=== PATIENT | male | born 1980 | race Caucasian/White ===

== ENCOUNTER 2019-09-18 09:53 | Inpatient (IN) | payer OTHER ==
[2019-09-18 10:27] VITALS: BMI 25.8
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
[2019-09-18] MEDS ORDERED: MAGNESIUM HYDROX 2400MG/30ML ORAL SUSPENSION 30 ML CUP PO PRN (12:06)
[2019-09-18] MEDS ORDERED: IBUPROFEN 400 MG TABLET (FP) PO PRN (12:06)
[2019-09-18] MEDS ORDERED: hydrOXYzine PAMOATE 25 MG CAPSULE (FP) PO PRN (12:06)
[2019-09-18] MEDS ORDERED: MAGNESIUM CITRATE 300 ML BOTTLE PO PRN (12:06)
[2019-09-18] MEDS ORDERED: BISMUTH SUBSALICYLATE 262 MG/15 ML BTL PO PRN (12:06)
[2019-09-18] MEDS ORDERED: MENTHOL/PHENOL 1 EACH UD MM PRN (12:06)
[2019-09-18] MEDS ORDERED: METHOCARBAMOL 500 MG TABLET PO PRN (12:06)
[2019-09-18] MEDS ORDERED: ACETAMINOPHEN 325 MG TABLET (FP) PO PRN ×2 (12:06)
[2019-09-18] MEDS ORDERED: chlordiazePOXIDE HCL 25 MG CAPSULE PO PRN (12:06)
[2019-09-18] MEDS ORDERED: MAG HYDROX/AL HYDROX/SIMETH 30 ML UNIT-DOSE CUP PO PRN (12:06)
[2019-09-18] MEDS ORDERED: ALBUTEROL SO4 8 GM HFA INHALER IH PRN (12:08)
--- NOTE | 2019-09-18 12:10 | PN ---
Teaching Attending Note Name of Resident: Felix Escobar ATTENDING PHYSICIAN STATEMENT I saw and evaluated the patient. I reviewed the resident's note and discussed the case with the resident. I agree with the resident's findings and plan as documented. SUBJECTIVE: 39 y.o. 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 Benzos: three x 2mg tablets daily xanax, 4mg klonopin 3x daily, valium as well ; last used yesterday; first started in 2009; never had withdrawal seizure Heroin: 10 bags/day last used yesterday, IV use in arms, never had abscess; never OD'd. In methadone program, since 14 years old; uses clean needles, mmtp 80 mg daily Cocaine: 4-5grams per day IV use, since 18 years old Cigarettes: 1 pack per day 15 years Marijuana: quarter ounce per week OBJECTIVE: wnwd Vital Signs - 24 hr 09/18/19 10:18 Temperature 97.8 F Pulse Rate 77 Respiratory 16 Rate Blood Pressure 137/96 ASSESSMENT AND PLAN: Alcohol dependence / Sedative dependence- Librium detox. Opioid dependence on MMTP Nicotine dependence - smoking cessation counseling cocaine dependence / Cannabis dependence .
[2019-09-18] MEDS ORDERED: chlordiazePOXIDE HCL 25 MG CAPSULE PO ONE (12:40)
[2019-09-18] MEDS: BUDESONIDE/FORMETEROL FUMARATE 160/4.5 mcg INHALER IH SCH ×2 (13:19→22:09)
[2019-09-18] MEDS: NICOTINE 21 MG/24 HOURS TOPICAL PATCH TD SCH (13:19)
[2019-09-18 14:33] LABS: HEMATOCRIT 50.8 % (35.4-49); HEMOGLOBIN 16.3 GM/dL (11.7-16.9); MCH 27.2 pg (25.7-33.7); MCHC 32.2 g/dl (32.0-35.9); MEAN CELL VOLUME 84.7 fl (80-96); MEAN PLT VOLUME 7.3 fl (7.5-11.1); PLATELET COUNT 335 K/MM3 (134-434); WHITE BLOOD COUNT 6.4 K/mm3 (4.0-10.0)
[2019-09-18 14:47] LABS: ALBUMIN 3.7 g/dl (3.4-5.0); BILIRUBIN,TOTAL 0.3 mg/dL (0.2-1); BLOOD UREA NITROGEN 14.6 mg/dL (7-18); CALCIUM 8.8 mg/dL (8.5-10.1); CREATININE 0.7 mg/dL (0.55-1.3); POTASSIUM 4.5 mmol/L (3.5-5.1); TOT PROT 6.8 g/dl (6.4-8.2)
[2019-09-18] MEDS: chlordiazePOXIDE HCL 25 MG CAPSULE PO SCH ×2 (17:29→22:09)
[2019-09-18] MEDS: THIAMINE HCL 100 MG TABLET (FP) PO SCH (22:09)
[2019-09-18] MEDS: MELATONIN 5 MG TABLETS PO PRN (22:09)
[2019-09-19] MEDS: chlordiazePOXIDE HCL 25 MG CAPSULE PO SCH ×4 (05:45→22:11)
[2019-09-19] MEDS: METHADONE HCL 40 MG DISPERSABLE TABLET PO SCH (05:45)
[2019-09-19] MEDS: NICOTINE 21 MG/24 HOURS TOPICAL PATCH TD SCH (10:37)
[2019-09-19] MEDS: PRENATAL VITAMINS W/ FOLIC ACID TABLET (FP) PO SCH (10:37)
[2019-09-19] MEDS: BUDESONIDE/FORMETEROL FUMARATE 160/4.5 mcg INHALER IH SCH ×2 (11:42→22:13)
--- NOTE | 2019-09-19 16:35 | PN ---
S CIWA - CIWA Score Nausea/Vomitin-No Nausea/No Vomiting Muscle Tremors: 3 Anxiety: 3 Agitation: 1-Slight > Activity Paroxysmal Sweats: 3 Orientation: 0-Oriented Tacttile Disturbances: 0-None Auditory Disturbances: 0-None Visual Disturbances: 0-None Headache: 2-Mild CIWA-Ar Total Score: 12 BHS COWS - Scale Resting Pulse: 0= [place] 80 or Below Sweatin= Chills/Flushing Restless Observation: 1= Difficult to Sit Still Pupil Size: 0= Normal to Room Light Bone or Joint Aches: 2= Severe Diffuse Aches Runny Nose/ Eye Tearin= None GI Upset > 30mins: 0= None Tremor Observation of Outstretched Hands: 2= Slight Tremor Visible Yawning Observation: 1= 1-2x During Session Anxiety or Irritability: 2=Irritable/Anxious Goose Flesh Skin: 3=Piloerection COWS Score: 12 BHS Progress Note (SOAP) Subjective: Body Aches, Anxious, Tremors, Sweating. Objective: PATIENT A & O X 3, OBSERVED AMBULATING ON DETOX UNIT UNASSISTED. IN NO ACUTE DISTRESS. 09/19/19 16:33 Vital Signs Temperature 98.2 F 09/19/19 09:42 Pulse Rate 63 09/19/19 09:42 Respiratory Rate 18 09/19/19 09:42 Blood Pressure 129/85 09/19/19 09:42 O2 Sat by Pulse Oximetry (%) Laboratory Tests 09/18/19 09/18/19 09/18/19 12:49 12:49 12:49 WBC 6.4 RBC 6.00 H Hgb 16.3 Hct 50.8 H MCV 84.7 MCH 27.2 MCHC 32.2 RDW 14.0 Plt Count 335 MPV 7.3 L Sodium 136 Potassium 4.5 Chloride 102 Carbon Dioxide 30 Anion Gap 4 L BUN 14.6 Creatinine 0.7 Est GFR (CKD-EPI)AfAm 135.86 Est GFR (CKD-EPI)NonAf 117.22 Random Glucose 95 Calcium 8.8 Total Bilirubin 0.3 AST 16 ALT 30 Alkaline Phosphatase 97 Total Protein 6.8 Albumin 3.7 RPR Titer Nonreactive LABS NOTED. Assessment: 09/19/19 16:34 WITHDRAWAL SYMPTOMS. Plan: CONTINUE DETOX.
[2019-09-19] MEDS: THIAMINE HCL 100 MG TABLET (FP) PO SCH (22:11)
[2019-09-19] MEDS: MELATONIN 5 MG TABLETS PO PRN (22:11)
[2019-09-20] MEDS: chlordiazePOXIDE HCL 25 MG CAPSULE PO SCH ×4 (05:30→22:09)
[2019-09-20] MEDS: METHADONE HCL 40 MG DISPERSABLE TABLET PO SCH (05:30)
--- NOTE | 2019-09-20 10:19 | PN ---
[facility] CIWA - CIWA Score Nausea/Vomitin-Mild Nausea/No Vomiting Muscle Tremors: 3 Anxiety: 2 Agitation: 3 Paroxysmal Sweats: 1-Minimal Palms Moist Orientation: 0-Oriented Tacttile Disturbances: 0-None Auditory Disturbances: 0-None Visual Disturbances: 0-None Headache: 0-None Present CIWA-Ar Total Score: 10 S Progress Note (SOAP) Subjective: 39 years old male admitted on 09/18/19 for alcohol withdrawal sx management treated with librium detox regimen tolerate well at this time ate breakfast received methadone 80 mg po today feeling better resting on bed comfortably Objective: 09/20/19 10:22 Vital Signs Temperature 98.2 F 09/20/19 09:09 Pulse Rate 65 09/20/19 09:09 Respiratory Rate 18 09/20/19 09:09 Blood Pressure 125/84 09/20/19 09:09 O2 Sat by Pulse Oximetry (%) Laboratory Last Values WBC 6.4 K/mm3 (4.0-10.0) 09/18/19 12:49 RBC 6.00 M/mm3 (4.00-5.60) H 09/18/19 12:49 Hgb 16.3 GM/dL (11.7-16.9) 09/18/19 12:49 Hct 50.8 % (35.4-49) H 09/18/19 12:49 MCV 84.7 fl (80-96) 09/18/19 12:49 MCH 27.2 pg (25.7-33.7) 09/18/19 12:49 MCHC 32.2 g/dl (32.0-35.9) 09/18/19 12:49 RDW 14.0 % (11.9-15.9) 09/18/19 12:49 Plt Count 335 K/MM3 (134-434) 09/18/19 12:49 MPV 7.3 fl (7.5-11.1) L 09/18/19 12:49 Sodium 136 mmol/L (136-145) 09/18/19 12:49 Potassium 4.5 mmol/L (3.5-5.1) 09/18/19 12:49 Chloride 102 mmol/L (98-107) 09/18/19 12:49 Carbon Dioxide 30 mmol/L (21-32) 09/18/19 12:49 Anion Gap 4 MMOL/L (8-16) L 09/18/19 12:49 BUN 14.6 mg/dL (7-18) 09/18/19 12:49 Creatinine 0.7 mg/dL (0.55-1.3) 09/18/19 12:49 Est GFR (CKD-EPI)AfAm 135.86 09/18/19 12:49 Est GFR (CKD-EPI)NonAf 117.22 09/18/19 12:49 Random Glucose 95 mg/dL (74-106) 09/18/19 12:49 Calcium 8.8 mg/dL (8.5-10.1) 09/18/19 12:49 Total Bilirubin 0.3 mg/dL (0.2-1) 09/18/19 12:49 AST 16 U/L (15-37) 09/18/19 12:49 ALT 30 U/L (13-61) 09/18/19 12:49 Alkaline Phosphatase 97 U/L (45-117) 09/18/19 12:49 Total Protein 6.8 g/dl (6.4-8.2) 09/18/19 12:49 Albumin 3.7 g/dl (3.4-5.0) 09/18/19 12:49 RPR Titer Nonreactive (NONREACTIVE) 09/18/19 12:49 lab noted Assessment: 09/20/19 10:23 alcohol withdrawal sx methadone maintenance program Plan: continue librium detox regimen
[2019-09-20] MEDS: PRENATAL VITAMINS W/ FOLIC ACID TABLET (FP) PO SCH (11:00)
[2019-09-20] MEDS: NICOTINE 21 MG/24 HOURS TOPICAL PATCH TD SCH (11:00)
[2019-09-20] MEDS: BUDESONIDE/FORMETEROL FUMARATE 160/4.5 mcg INHALER IH SCH ×2 (11:00→22:09)
[2019-09-20] MEDS: THIAMINE HCL 100 MG TABLET (FP) PO SCH (22:09)
[2019-09-20] MEDS: MELATONIN 5 MG TABLETS PO PRN (22:09)
[2019-09-21] MEDS ORDERED: chlordiazePOXIDE HCL 10 MG CAPSULE PO PRN
[2019-09-21] MEDS ORDERED: chlordiazePOXIDE HCL 10 MG CAPSULE PO SCH (05:00)
[2019-09-21] MEDS: METHADONE HCL 40 MG DISPERSABLE TABLET PO SCH (06:01)
[2019-09-21 09:21] VITALS: BP 123/68; PULSE 87; TEMP 97.2
--- NOTE | 2019-09-21 14:54 | DS ---
[facility] Detox Discharge Summary Admission Date: 09/18/19 Discharge Date: 09/21/19 - History Present History: Alcohol Dependence Additional Comments: 39 years old male admitted on 09/18/19 for alcohol withdrawal sx management treated with librium detox regimen patient tolerated well estimate discharge date 09/23/10 patient report feeling better today wants to return home where support system of parents girlfriend and siblings patient prefers to leave the detox to go to for sobriety patient is alert oriented x 3 respiratory clear lung bilaterally on auscultation abdomen soft no rebound tenderness extremities full range of motion - Physical Exam Results Vital Signs: Vital Signs Temperature 97.2 F L 09/21/19 09:21 Pulse Rate 87 09/21/19 09:21 Respiratory Rate 18 09/21/19 09:21 Blood Pressure 123/68 09/21/19 09:21 O2 Sat by Pulse Oximetry (%) Pertinent Admission Physical Exam Findings: alcohol withdrawal sx Laboratory Last Values WBC 6.4 K/mm3 (4.0-10.0) 09/18/19 12:49 RBC 6.00 M/mm3 (4.00-5.60) H 09/18/19 12:49 Hgb 16.3 GM/dL (11.7-16.9) 09/18/19 12:49 Hct 50.8 % (35.4-49) H 09/18/19 12:49 MCV 84.7 fl (80-96) 09/18/19 12:49 MCH 27.2 pg (25.7-33.7) 09/18/19 12:49 MCHC 32.2 g/dl (32.0-35.9) 09/18/19 12:49 RDW 14.0 % (11.9-15.9) 09/18/19 12:49 Plt Count 335 K/MM3 (134-434) 09/18/19 12:49 MPV 7.3 fl (7.5-11.1) L 09/18/19 12:49 Sodium 136 mmol/L (136-145) 09/18/19 12:49 Potassium 4.5 mmol/L (3.5-5.1) 09/18/19 12:49 Chloride 102 mmol/L (98-107) 09/18/19 12:49 Carbon Dioxide 30 mmol/L (21-32) 09/18/19 12:49 Anion Gap 4 MMOL/L (8-16) L 09/18/19 12:49 BUN 14.6 mg/dL (7-18) 09/18/19 12:49 Creatinine 0.7 mg/dL (0.55-1.3) 09/18/19 12:49 Est GFR (CKD-EPI)AfAm 135.86 09/18/19 12:49 Est GFR (CKD-EPI)NonAf 117.22 09/18/19 12:49 Random Glucose 95 mg/dL (74-106) 09/18/19 12:49 Calcium 8.8 mg/dL (8.5-10.1) 09/18/19 12:49 Total Bilirubin 0.3 mg/dL (0.2-1) 09/18/19 12:49 AST 16 U/L (15-37) 09/18/19 12:49 ALT 30 U/L (13-61) 09/18/19 12:49 Alkaline Phosphatase 97 U/L (45-117) 09/18/19 12:49 Total Protein 6.8 g/dl (6.4-8.2) 09/18/19 12:49 Albumin 3.7 g/dl (3.4-5.0) 09/18/19 12:49 RPR Titer Nonreactive (NONREACTIVE) 09/18/19 12:49 lab noted - Treatment Hospital Course: Detox Protocol Followed, Detoxed Safely, Responded well, Discharged Condition Good, Rehab Referral Accepted Patient has Accepted a Rehab Referral to: community support approach - Medication Discharge Medications: Ambulatory Orders Albuterol Sulfate Inhaler - [Ventolin HFA Inhaler -] 2 inh PO Q4H PRN 09/18/19 Budesonide/Formeterol Fumarate [SYMBICORT 160/4.5mcg -] 2 inh PO BID 09/18/19 Methadone [Dolophine -] 80 mg PO DAILY 09/18/19 - Diagnosis (1) Alcohol dependence Status: Acute Qualifiers: Substance use status: uncomplicated Qualified Code(s): F10.20 - Alcohol dependence, uncomplicated (2) Methadone maintenance therapy patient Status: Chronic - AMA Did Patient Leave Against Medical Advice: No CIWA Score - CIWA Score Nausea/Vomitin-No Nausea/No Vomiting Muscle Tremors: 2 Anxiety: 1-Mildly Anxious Agitation: 2 Paroxysmal Sweats: No Perspiration Orientation: 0-Oriented Tacttile Disturbances: 0-None Auditory Disturbances: 0-None Visual Disturbances: 0-None Headache: 0-None Present CIWA-Ar Total Score: 5
[2019-09-22] MEDS ORDERED: chlordiazePOXIDE HCL 10 MG CAPSULE PO SCH (05:00)
[2019-09-23] MEDS ORDERED: chlordiazePOXIDE HCL 10 MG CAPSULE PO ONE (05:00)
== END 2019-09-21 09:39 | disposition home or self-care (01) | DRG 773 ==
LOC: YASAS 09:53 → Y3N 12:33
PROVIDERS: ADMIT Allergy & Immunology; ATTEND Allergy & Immunology
PROC: HZ2ZZZZ Detoxification Services for Substance Abuse Treatment (ICD-10-PCS; principal; 2019-09-18)
DX: F10.230 Alcohol dependence with withdrawal, uncomplicated (principal); F11.20 Opioid dependence, uncomplicated; F14.20 Cocaine dependence, uncomplicated; F17.210 Nicotine dependence, cigarettes, uncomplicated; Z91.013 Allergy to seafood
CPT/HCPCS: 36415; 80053; 85027; 86593

== ENCOUNTER 2020-12-08 14:48 | Inpatient (IN) | payer OTHER ==
[2020-12-08] MEDS ORDERED: IBUPROFEN 400 MG TABLET (FP) PO PRN (15:37)
[2020-12-08] MEDS ORDERED: LOPERAMIDE HCL 2 MG CAPSULE PO PRN (15:37)
[2020-12-08] MEDS ORDERED: MAGNESIUM HYDROX 2400MG/30ML ORAL SUSPENSION 30 ML CUP PO PRN (15:37)
[2020-12-08] MEDS ORDERED: MAG HYDROX/AL HYDROX/SIMETH 30 ML UNIT-DOSE CUP PO PRN (15:37)
[2020-12-08] MEDS ORDERED: ACETAMINOPHEN 325 MG TABLET (FP) PO PRN (15:37)
[2020-12-08] MEDS ORDERED: MAGNESIUM CITRATE 300 ML BOTTLE PO PRN (15:37)
[2020-12-08] MEDS ORDERED: MENTHOL/PHENOL 1 EACH UD MM PRN (15:37)
[2020-12-08] MEDS ORDERED: P-EPHED 60MG/TRIPROLIDI 2.5MG TABLET PO PRN (15:37)
[2020-12-08] MEDS ORDERED: guaiFENesin 200 MG/10 ML 10 ML UNIT-DOSE CUPS PO PRN (15:37)
[2020-12-08] MEDS ORDERED: NICOTINE POLACRILEX 2 MG GUM BUC PRN (15:37)
[2020-12-08] MEDS ORDERED: ALBUTEROL SO4 HFA INHALER IH PRN (15:49)
[2020-12-08] MEDS: ATORVASTATIN CA 10 MG TABLET (FP) PO SCH (21:33)
[2020-12-08] MEDS: QUEtiapine FUMARATE 50 MG TABLET PO SCH (21:33)
[2020-12-08] MEDS: MELATONIN 5 MG TABLETS PO SCH (21:33)
[2020-12-08] MEDS: THIAMINE HCL 100 MG TABLET (FP) PO SCH (21:33)
[2020-12-08] MEDS: hydrOXYzine PAMOATE 25 MG CAPSULE (FP) PO PRN (21:33)
[2020-12-08] MEDS: MIRTAZAPINE 30 MG TABLET PO SCH (21:33)
[2020-12-08] MEDS: busPIRone HCL 10 MG TABLET (FP) PO SCH (21:34)
[2020-12-08] MEDS: BUDESONIDE/FORMETEROL FUMARATE 160/4.5 mcg INHALER IH SCH (21:35)
[2020-12-09] MEDS ORDERED: METHADONE HCL 10 MG TABLET PO SCH (06:00)
[2020-12-09] MEDS ORDERED: METHADONE HCL 5 MG TABLET ONE (06:39)
[2020-12-09] MEDS ORDERED: METHADONE HCL 10 MG TABLET ONE (06:39)
[2020-12-09] MEDS: METHADONE 30 MG, METHADONE 5 MG PO SCH (06:40)
[2020-12-09] MEDS: ESCITALOPRAM OXALATE 10 MG TABLET PO SCH (10:12)
[2020-12-09] MEDS: PRENATAL VITAMINS W/ FOLIC ACID TABLET (FP) PO SCH (10:12)
[2020-12-09] MEDS: NICOTINE 14 MG/24 HOURS TOPICAL PATCH TD SCH (10:12)
[2020-12-09] MEDS: busPIRone HCL 10 MG TABLET (FP) PO SCH ×2 (10:12→21:36)
[2020-12-09] MEDS: BUDESONIDE/FORMETEROL FUMARATE 160/4.5 mcg INHALER IH SCH ×2 (10:13→21:36)
[2020-12-09] MEDS: RAMIPRIL 5 MG CAPSULE PO SCH (10:13)
[2020-12-09] MEDS: QUEtiapine FUMARATE 50 MG TABLET PO SCH (21:36)
[2020-12-09] MEDS: ATORVASTATIN CA 10 MG TABLET (FP) PO SCH (21:36)
[2020-12-09] MEDS: MELATONIN 5 MG TABLETS PO SCH (21:36)
[2020-12-09] MEDS: hydrOXYzine PAMOATE 25 MG CAPSULE (FP) PO PRN (21:36)
[2020-12-09] MEDS: MIRTAZAPINE 30 MG TABLET PO SCH (21:36)
[2020-12-09] MEDS: THIAMINE HCL 100 MG TABLET (FP) PO SCH (21:36)
[2020-12-10] MEDS ORDERED: METHADONE HCL 5 MG TABLET ONE (03:28)
[2020-12-10] MEDS ORDERED: METHADONE HCL 10 MG TABLET ONE (03:28)
[2020-12-10] MEDS: METHADONE 30 MG, METHADONE 5 MG PO SCH (07:14)
[2020-12-10] MEDS: RAMIPRIL 5 MG CAPSULE PO SCH (10:14)
[2020-12-10] MEDS: ESCITALOPRAM OXALATE 10 MG TABLET PO SCH (10:14)
[2020-12-10] MEDS: PRENATAL VITAMINS W/ FOLIC ACID TABLET (FP) PO SCH (10:14)
[2020-12-10] MEDS: busPIRone HCL 10 MG TABLET (FP) PO SCH ×2 (10:14→21:45)
[2020-12-10] MEDS: NICOTINE 14 MG/24 HOURS TOPICAL PATCH TD SCH (10:15)
[2020-12-10] MEDS: BUDESONIDE/FORMETEROL FUMARATE 160/4.5 mcg INHALER IH SCH ×2 (10:15→21:45)
[2020-12-10] MEDS: THIAMINE HCL 100 MG TABLET (FP) PO SCH (21:45)
[2020-12-10] MEDS: ATORVASTATIN CA 10 MG TABLET (FP) PO SCH (21:45)
[2020-12-10] MEDS: MIRTAZAPINE 30 MG TABLET PO SCH (21:45)
[2020-12-10] MEDS: QUEtiapine FUMARATE 50 MG TABLET PO SCH (21:45)
[2020-12-10] MEDS: MELATONIN 5 MG TABLETS PO SCH (21:46)
[2020-12-11] MEDS ORDERED: METHADONE HCL 5 MG TABLET ONE (03:30)
[2020-12-11] MEDS ORDERED: METHADONE HCL 10 MG TABLET ONE (03:30)
[2020-12-11] MEDS: METHADONE 30 MG, METHADONE 5 MG PO SCH (06:17)
[2020-12-11] MEDS: busPIRone HCL 10 MG TABLET (FP) PO SCH ×2 (10:04→21:42)
[2020-12-11] MEDS: PRENATAL VITAMINS W/ FOLIC ACID TABLET (FP) PO SCH (10:04)
[2020-12-11] MEDS: ESCITALOPRAM OXALATE 10 MG TABLET PO SCH (10:04)
[2020-12-11] MEDS: BUDESONIDE/FORMETEROL FUMARATE 160/4.5 mcg INHALER IH SCH ×2 (10:04→21:42)
[2020-12-11] MEDS: NICOTINE 14 MG/24 HOURS TOPICAL PATCH TD SCH (10:05)
[2020-12-11] MEDS: RAMIPRIL 5 MG CAPSULE PO SCH (10:05)
[2020-12-11] MEDS: QUEtiapine FUMARATE 50 MG TABLET PO SCH (21:42)
[2020-12-11] MEDS: MELATONIN 5 MG TABLETS PO SCH (21:42)
[2020-12-11] MEDS: MIRTAZAPINE 30 MG TABLET PO SCH (21:42)
[2020-12-11] MEDS: THIAMINE HCL 100 MG TABLET (FP) PO SCH (21:42)
[2020-12-11] MEDS: ATORVASTATIN CA 10 MG TABLET (FP) PO SCH (21:42)
[2020-12-12] MEDS ORDERED: METHADONE HCL 5 MG TABLET ONE (05:17)
[2020-12-12] MEDS ORDERED: METHADONE HCL 10 MG TABLET ONE (05:17)
[2020-12-12] MEDS: METHADONE 30 MG, METHADONE 5 MG PO SCH (06:46)
[2020-12-12] MEDS: BUDESONIDE/FORMETEROL FUMARATE 160/4.5 mcg INHALER IH SCH ×2 (09:48→21:24)
[2020-12-12] MEDS: busPIRone HCL 10 MG TABLET (FP) PO SCH ×2 (09:48→21:24)
[2020-12-12] MEDS: RAMIPRIL 5 MG CAPSULE PO SCH (09:48)
[2020-12-12] MEDS: ESCITALOPRAM OXALATE 10 MG TABLET PO SCH (09:48)
[2020-12-12] MEDS: NICOTINE 14 MG/24 HOURS TOPICAL PATCH TD SCH (09:49)
[2020-12-12] MEDS: PRENATAL VITAMINS W/ FOLIC ACID TABLET (FP) PO SCH (09:49)
[2020-12-12] MEDS: NICOTINE 21 MG/24 HOURS TOPICAL PATCH TD SCH (11:44)
[2020-12-12] MEDS: THIAMINE HCL 100 MG TABLET (FP) PO SCH (21:24)
[2020-12-12] MEDS: MIRTAZAPINE 30 MG TABLET PO SCH (21:24)
[2020-12-12] MEDS: MELATONIN 5 MG TABLETS PO SCH (21:24)
[2020-12-12] MEDS: ATORVASTATIN CA 10 MG TABLET (FP) PO SCH (21:24)
[2020-12-12] MEDS: QUEtiapine FUMARATE 50 MG TABLET PO SCH (21:24)
[2020-12-12] MEDS: hydrOXYzine PAMOATE 25 MG CAPSULE (FP) PO PRN (21:24)
[2020-12-13] MEDS ORDERED: METHADONE HCL 5 MG TABLET ONE (03:29)
[2020-12-13] MEDS ORDERED: METHADONE HCL 10 MG TABLET ONE (03:29)
[2020-12-13 06:53] VITALS: TEMP 97.5
[2020-12-13] MEDS: METHADONE 30 MG, METHADONE 5 MG PO SCH (07:16)
[2020-12-13] MEDS: BUDESONIDE/FORMETEROL FUMARATE 160/4.5 mcg INHALER IH SCH (09:42)
[2020-12-13] MEDS: busPIRone HCL 10 MG TABLET (FP) PO SCH (09:42)
[2020-12-13] MEDS: PRENATAL VITAMINS W/ FOLIC ACID TABLET (FP) PO SCH (09:42)
[2020-12-13] MEDS: ESCITALOPRAM OXALATE 10 MG TABLET PO SCH (09:42)
[2020-12-13] MEDS: NICOTINE 21 MG/24 HOURS TOPICAL PATCH TD SCH (09:43)
[2020-12-13] MEDS: RAMIPRIL 5 MG CAPSULE PO SCH (09:43)
[2020-12-13 10:30] VITALS: BP 137/72; PULSE 103
== END 2020-12-13 09:57 | disposition home or self-care (01) | DRG 772 ==
LOC: YASAS 14:48 → Y5N 14:49
PROVIDERS: ADMIT Allergy & Immunology; ATTEND Allergy & Immunology
PROC: HZ42ZZZ Group Counseling for Substance Abuse Treatment, Cognitive-Behavioral (ICD-10-PCS; principal; 2020-12-08)
DX: F10.20 Alcohol dependence, uncomplicated (principal); F14.20 Cocaine dependence, uncomplicated; F11.20 Opioid dependence, uncomplicated; F17.210 Nicotine dependence, cigarettes, uncomplicated; F41.9 Anxiety disorder, unspecified; F32.9 Major depressive disorder, single episode, unspecified; I10 Essential (primary) hypertension; E78.5 Hyperlipidemia, unspecified; E78.00 Pure hypercholesterolemia, unspecified; J45.909 Unspecified asthma, uncomplicated; K21.9 Gastro-esophageal reflux disease without esophagitis; Z86.69 Personal history of other diseases of the nervous system and sense organs; Z91.013 Allergy to seafood
CPT/HCPCS: C9803; U0003